=== PATIENT | female | born 1995 | race Caucasian/White ===

== ENCOUNTER 2024-05-27 03:40 | Inpatient (IN) | payer MEDICARE, SELFPAY ==
[2024-05-26 22:30] VITALS: BP 138/88
[2024-05-27] VITALS (9 sets, daily range): BP systolic 106–124; BP diastolic 51–86; BMI 34.5; BMI 33.7
--- NOTE | 2024-05-27 01:12 | ED.GENMED ---
History of Present Illness
<Faviola Frazier PA-C - Last Filed: 05/27/24 03:32>
General
Chief Complaint: Skin Problem
Source: patient
Time Seen by Provider: 05/27/24 01:00
History of Present Illness
History of Present Illness:
29yoF with a history of prior MRSA infection presenting with her mother for evaluation of a left buttock wound. The wound initially started over a week ago. The wound opened and started draining 6 days ago. She was seen by her PCP 2 days ago and was
placed on Bactrim. She has had 6 doses thus far. She is here with persistent drainage. She has not noticed any improvement since starting the antibiotics. She had fevers up to 101.4 earlier last week but denies any fevers the past few days.
Past History
<Faviola Frazier PA-C - Last Filed: 05/27/24 03:32>
Past History
ED Past Medical History: Psychiatric (depression)
Social History
Tobacco: Non-smoker
Alcohol: None
Drug: None
Personal:
Living: with family
Employment: Employed
Phy Exam
<Faviola Frazier PA-C - Last Filed: 05/27/24 03:32>
General Physical Exam
General Presentation: well appearing and no apparent distress
General age: appears stated age
General Skin: warm and dry
General Habitus: normal
Gastrointestinal Exam
Rectal Exam: other (+Large area of erythema at L buttock with two separate wounds noted. The inferior wound is larger with an area of fluctuance, tenderness, and drainage. No crepitus. )
Davidson Coma Scale
Eye Opening: Spontaneous
Verbal Response: Oriented
Motor Response: Obeys Commands
GCS Total Score: 15
Skin Exam
Skin Exam: warm/dry and erythema
Psychiatric Exam
Psychiatric Exam: normal mood/affect
Course
<Faviola Frazier PA-C - Last Filed: 05/27/24 03:32>
Orders/Labs/Results
Orders:
Orders
05/27/24 01:19
CT Pelvis With Iv Contrast Urgent
Comment:
Reason For Exam: Buttock abscess
Test Result ONCE
05/27/24 01:24
Basic Metabolic Panel Urgent
Complete Blood Count/With Diff Urgent
HCG, Serum Qualitative Screen Urgent
05/27/24 01:38
Ketorolac [Toradol] 15 mg IV NOW STA
05/27/24 02:57
CefTRIAXone [Rocephin] 2,000 mg IV NOW STA
05/27/24 03:00
Sterile Water [Sterile Water For Injection] 20 ml .ROUTE .STK-MED
05/27/24 03:15
Vancomycin [Vancocin] 2,000 mg 0.9% Sodium Chloride 500 ml [Nss] 500 ml IV ONCE
Abnormal Lab Results
05/27/24
01:24
WBC 11.0 H 10^3/uL
(4.8-10.8)
RBC 4.17 L 10^6/uL
(4.20-5.40)
Hgb 8.1 L g/dL
(12.0-16.0)
Hct 25.6 L %
(37.0-47.0)
MCV 61.4 L fL
(81.0-99.0)
MCH 19.4 L pg
(27.0-31.0)
MCHC 31.6 L g/dL
(33.0-37.0)
RDW 19.7 H %
(11.5-14.5)
Plt Count 585 H 10^3/uL
(130-400)
Abs Immat Gran (auto) 0.4 H 10^3/uL
(0-0.05)
Absolute Neuts (auto) 6.8 H 10^3/uL
(1.4-6.5)
Absolute Monos (auto) 0.8 H 10^3/uL
(0.1-0.6)
Immature Gran % 3.7 H %
(0-0.5)
Carbon Dioxide 21 L mmol/L
(22-30)
05/27/24 01:24
05/27/24 01:24
Vital Signs
Initial and Last Documented VS:
Initial Vital Signs
Temp Pulse Resp BP Pulse Ox
98.1 F 128 24 138/88 97
05/26/24 22:30 05/26/24 22:30 05/26/24 22:30 05/26/24 22:30 05/26/24 22:30
Last Documented Vital Signs
Temp Pulse Resp BP Pulse Ox
98.1 F 91 16 116/76 96
05/26/24 22:30 05/27/24 03:06 05/27/24 03:06 05/27/24 03:06 05/27/24 03:06
<Rafael Meehan MD - Last Filed: 05/27/24 01:39>
Orders/Labs/Results
Orders:
Orders
05/27/24 01:19
CT Pelvis With Iv Contrast Urgent
Comment:
Reason For Exam: Buttock abscess
Test Result ONCE
05/27/24 01:24
Basic Metabolic Panel Urgent
Complete Blood Count/With Diff Urgent
HCG, Serum Qualitative Screen Urgent
05/27/24 01:38
Ketorolac [Toradol] 15 mg IV NOW STA
05/27/24 02:57
CefTRIAXone [Rocephin] 2,000 mg IV NOW STA
05/27/24 03:00
Sterile Water [Sterile Water For Injection] 20 ml .ROUTE .STK-MED
05/27/24 03:15
Vancomycin [Vancocin] 2,000 mg 0.9% Sodium Chloride 500 ml [Nss] 500 ml IV ONCE
Abnormal Lab Results
05/27/24
01:24
WBC 11.0 H 10^3/uL
(4.8-10.8)
RBC 4.17 L 10^6/uL
(4.20-5.40)
Hgb 8.1 L g/dL
(12.0-16.0)
Hct 25.6 L %
(37.0-47.0)
MCV 61.4 L fL
(81.0-99.0)
MCH 19.4 L pg
(27.0-31.0)
MCHC 31.6 L g/dL
(33.0-37.0)
RDW 19.7 H %
(11.5-14.5)
Plt Count 585 H 10^3/uL
(130-400)
Abs Immat Gran (auto) 0.4 H 10^3/uL
(0-0.05)
Absolute Neuts (auto) 6.8 H 10^3/uL
(1.4-6.5)
Absolute Monos (auto) 0.8 H 10^3/uL
(0.1-0.6)
Immature Gran % 3.7 H %
(0-0.5)
Carbon Dioxide 21 L mmol/L
(22-30)
05/27/24 01:24
05/27/24 01:24
Vital Signs
Initial and Last Documented VS:
Initial Vital Signs
Temp Pulse Resp BP Pulse Ox
98.1 F 128 24 138/88 97
05/26/24 22:30 05/26/24 22:30 05/26/24 22:30 05/26/24 22:30 05/26/24 22:30
Last Documented Vital Signs
Temp Pulse Resp BP Pulse Ox
98.1 F 91 16 116/76 96
05/26/24 22:30 05/27/24 03:06 05/27/24 03:06 05/27/24 03:06 05/27/24 03:06
<Faviola Frazier PA-C - Last Filed: 05/27/24 03:32>
MDM/Problems Addressed
Differential Diagnosis Includes:
29yoF here with L buttock wound for >1 week. Currently on Bactrim for 2 days without improvement. She reports fevers at home up to 101 but she is afebrile here. HR 128, BP stable. She is well-appearing in no acute distress. Patient has a large
amount of erythema along her left buttock with 2 separate wounds. Active drainage present with tenderness. No crepitus. Differential diagnosis includes but is not limited to: Cellulitis, abscess, doubt NSTI
Initial ED plan: Check CBC, BMP, hCG, and CT pelvis. IV Toradol for pain.
<Faviola Frazier PA-C - Last Filed: 05/27/24 03:32>
*Critical Care Note
Total Time (30-74mins, 75-104mins- exclusive of procedures): Not Applicable
<Faviola Frazier PA-C - Last Filed: 05/27/24 03:32>
Update Note
Update Note:
Labs reveal a mild leukocytosis with a white count of 11. CT shows a fluid collection along the left gluteal cleft measuring approximately 7 cm x 1.6 cm x 3 cm representing phlegmon or early abscess with surrounding cellulitis. Reactive
lymphadenopathy noted. IV Rocephin and vancomycin ordered given history of MRSA. Due to failure of outpatient antibiotics, she was admitted for further management.
ED Attending Note
<Faviola Frazier PA-C - Last Filed: 05/27/24 03:32>
-
Portions of this chart may have been created with voice recognition software.� Occasional wrong word or��sound alike� substitutions may have occurred due to the inherent limitations of voice recognition software.
<Rafael Meehan MD - Last Filed: 05/27/24 01:39>
ED Attending Note
Patient seen and examined by attending physician: Yes
ED Attending Note:
Patient presents to ED secondary to 1 week history of worsening pain in her left buttock area. Denies trauma. Denies nausea or vomiting. Denies fever or chills. Denies change in bowel habits. Denies previous history of similar symptoms.
Patient was seen by her primary care physician 2 days ago and started on Bactrim, without improvement in symptoms.
Physical Exam
General: mild painful distress, not acutely ill. afebrile
Head: nc/at. eomi
Neck: supple. no meningeal signs.
Abdomen: normal bowel sounds. not tender. Rectal exam (EULALIO Ramírez, at bedside): an area of erythema with minimal induration, approx 3cm in diameter noted over left buttock without active drainage. An additional 1mm diameter
lesion noted along left upper buttock.
Neuro: alert and oriented. no focal neurological deficits
Skin: no rash
Psychiatric: well kept. interactive and cooperative
Extremities: no edema. no calf tenderness.
History and exam consistent with likely buttock cellulitis, with development of early abscess.
CT pelvis pending
Discharge Plan
Departure
Patient Disposition: Admit
Date of Disposition: 05/27/24
Time of Disposition: 03:03
Presentation/result/management discussed w/ accepting MD/DO: Hospitalist
Discharge Problem:
Abscess and cellulitis of gluteal region
Prescriptions:
No Action
quetiapine 25 MG tablet
25 mg PO BID
Patient Comments:
morning and afternoon
benztropine 0.5 MG tablet
0.5 mg PO BID
haloperidol 5 MG tablet
10 mg PO DAILY
prazosin 1 MG capsule
2 mg PO HS
sertraline 100 MG tablet
100 mg PO DAILY
quetiapine 100 MG tablet
400 mg PO HS
omeprazole [Prilosec] 10 MG capsule,delayed release(DR/EC)
20 mg PO DAILY
trazodone 100 MG tablet
100 mg PO HS
buspirone 10 MG tablet
20 mg PO TID
hydroxyzine HCl 10 MG tablet
10 mg PO TID
bupropion HCl 150 MG tablet extended release 24 hr
150 mg PO DAILY
albuterol sulfate [Proventil HFA] 90 MCG/PUFF HFA aerosol inhaler
1 puff inhalation Q4HPRN PRN (Reason: shortness of breath) Qty: 1 0RF
dicyclomine [Bentyl] 10 mg Capsule
10 mg PO QID
Referrals:
Jaquelin Franks CRNP [Family Provider] -
Interventions
Interventions:
*Risk Screen - Suicide Last Done: 05/26/24 22:30
*General Assessment Last Done: 05/27/24 02:05
*Neglect/Abuse Screening Last Done: 05/26/24 22:30
ED- Fall Risk Assessment Last Done: 05/27/24 02:05
*ED COVID-19 Vaccine History Last Done: 05/27/24 02:05
ED-Skin Assessment Last Done: 05/27/24 02:05
Discharge Date and Time
Print Language: BULGARIAN
[2024-05-27 01:30] LABS: % Basophils 0.6 % (0-2); % Eosinophils 1.3 % (0-6); % Immature Granulocytes 3.7 % (0-0.5); % Monocytes 7.4 % (1.7-9.3); Absolute Basophils 0.1 10^3/uL (0-0.2); Absolute Eosinophils 0.1 10^3/uL (0-0.7); Absolute Immature Granulocytes 0.4 10^3/uL (0-0.05); Absolute Lymphocytes 2.8 10^3/uL (1.2-3.4); Absolute Monocytes 0.8 10^3/uL (0.1-0.6); Absolute Neutrophils 6.8 10^3/uL (1.4-6.5); Hematocrit 25.6 % (37.0-47.0); Hemoglobin 8.1 g/dL (12.0-16.0); Mean Corp Hgb Conc. 31.6 g/dL (33.0-37.0); Mean Corpuscular Hgb 19.4 pg (27.0-31.0); Mean Corpuscular Volume 61.4 fL (81.0-99.0); Mean Platelet Volume 8.6 fL (7.4-10.4); Nucleated Red Blood Cells % 0.4 %; Platelet Count 585 10^3/uL (130-400); Red Blood Cell Count 4.17 10^6/uL (4.20-5.40); Red Cell Dist. Width 19.7 % (11.5-14.5)
[2024-05-27 01:42] LABS: HCG, Serum Qualitative Screen Negative
[2024-05-27 01:45] LABS: Blood Urea Nitrogen 9 mg/dl (7-17); Calcium 8.9 mg/dl (8.4-10.2); Carbon Dioxide 21 mmol/L (22-30); Chloride 105 mmol/L (98-107); Glucose 95 mg/dl (70-99); Potassium 4.4 mmol/L (3.5-5.1); Sodium 139 mmol/L (135-145); eGFR > 60.00
[2024-05-27] MEDS: TORADOL 15 MG IV ×2 (01:48→16:08)
[2024-05-27] MEDS: ROCEPHIN 2000 MG IV (03:02)
--- NOTE | 2024-05-27 03:24 | HPS.HSE ---
Family Physician
-
Family Physician: Jaquelin Franks
Chief Complaint
-
Lt buttock wound with fever at home
History of Present Illness
29F Obesity, prior HX MRSA , schizoaffective disorder, and asthma seen at ER for evaultion of Lt buttock wound and cellultis.
- currently on PO Bactrim for 2 -3 days by PCP
- Reported Fever T max 101 at home but afebrile at ER
- Wound opened up and drained 6 days ago
Medical History
Past Medical History
Past Medical History: Reports Asthma, Psychiatric (schizoaffective disorder) and Other (obesity , HX MRSA )
Past Surgical History: Reports Other
Social History
Tobacco: Non-smoker
Alcohol: None
Living: With Family
Family History
Family History: Not pertinent
Allergies / Home Medications
Allergies reflects when Allergies were last updated in [employer].
Home Medications with original date entered in [employer]
Allergy/Medication List:
Allergies
Allergy/AdvReac Type Severity Reaction Status Date / Time
risperidone Allergy Unknown Verified 05/26/24 22:32
Home Medications
albuterol sulfate 90 mcg/actuation aerosol inhaler (Proventil HFA) 1 puff inhalation Q4HPRN PRN shortness of breath ##1 05/14/21
benztropine 0.5 mg tablet 0.5 mg PO BID 05/14/21
bupropion HCl 150 mg 24 hr tablet, extended release 150 mg PO DAILY 05/14/21
buspirone 10 mg tablet 20 mg PO TID 05/14/21
haloperidol 5 mg tablet 10 mg PO DAILY 05/14/21
hydroxyzine HCl 10 mg tablet 10 mg PO TID 05/14/21
omeprazole 10 mg capsule,delayed release (Prilosec) 20 mg PO DAILY 05/14/21
prazosin 1 mg capsule 2 mg PO HS 05/14/21
quetiapine 100 mg tablet 400 mg PO HS 05/14/21
quetiapine 25 mg tablet 25 mg PO BID 05/14/21
sertraline 100 mg tablet 100 mg PO DAILY 05/14/21
trazodone 100 mg tablet 100 mg PO HS 05/14/21
dicyclomine 10 mg capsule 10 mg PO QID 05/27/24
Review of Systems
-
Constitutional: Reports No Symptoms
EENT: Reports No Symptoms
Respiratory: Reports No Symptoms
Cardiac: Reports No Symptoms
Abdomen/GI: Reports No Symptoms
: Reports No Symptoms
Musculoskeletal: Reports No Symptoms
Skin: Reports See HPI
Neurological: Reports No Symptoms
Endocrine: Reports No Symptoms
Hematologic/Lymphatic: Reports No Symptoms
Psych: Reports No Symptoms
Physical Exam
Vital Signs
Vital Signs
Temp Pulse Resp BP Pulse Ox
98.1 F 91 16 116/76 96
05/26/24 22:30 05/27/24 03:06 05/27/24 03:06 05/27/24 03:06 05/27/24 03:06
Physical Exam
General: Obese
HEENT: NormoCephalic, Moist mucous membranes and Atraumatic
Respiratory: Clear
Cardiac: S1/S2 and Regular Rhythm; No Murmur or Rub
GI: Soft, Non Tender, Non Distended and Normal Bowel Sounds; No Organomegaly
Rectal: Deferred by Provider
Musculoskeletal: No Clubbing, No Cyanosis and No Edema
Skin: No Rash
Neuro: AO x 3 and Nonfocal/grossly intact
Psych: Calm
Laboratory Results
-
05/27/24 01:24
05/27/24 01:24
Data Reviewed
-
CT Scan: Report Reviewed by me
Lab Data: Labs Reviewed by me
Impression/Plan
-
Reviewed VS: Afebrile , stable VS
Data
WCC 11
Hgb 8.1 - baseline 9.4
Plt 585
CO2 [address]
fluid collection in medial Lt gluteal cleft 7x 1.6 x 3 cm
No rim enhancement
No free air
Mildly enlaged lt inguinal node
No prior hospitalist admission:
ASSESSMENT & PLAN
Pending Rx reconciliation
Lt buttock wound on OP Bactrim
Currently complicated with fever and CT evidence of fluid collection
Spontaneous Wd drainage 6 days ago
- HX MRSA
- switch ABx to IV Zosyn and vanco
- NPO and IVF in case OR drainage on Monday
- GS consult
HX obesity
Schizoaffective disorder
Asthma
- cont all OP Meds
DVT Px: SCD
Code: Full code
IP MS
[2024-05-27] MEDS: VANCOCIN 540 MG IV (03:46)
--- NOTE | 2024-05-27 04:19 | EDRN ---
Emergency contact ( mom):[phone]
[2024-05-27] MEDS: NSS 1000 IV (05:20)
[2024-05-27] MEDS: ZOSYN 50 IV ×3 (08:08→19:55)
[2024-05-27] MEDS: BENTYL 10 MG PO ×3 (08:10→21:35)
[2024-05-27] MEDS: SEROQUEL 25 MG PO ×2 (08:10→19:55)
[2024-05-27] MEDS: HALDOL 10 MG PO (08:10)
[2024-05-27] MEDS: ZOLOFT 100 MG PO (08:10)
[2024-05-27] MEDS: COGENTIN 0.5 MG PO ×2 (08:10→19:55)
[2024-05-27] MEDS: PROTONIX 40 MG PO (08:10)
[2024-05-27] MEDS: WELLBUTRIN XL (24 hour extended release) 150 MG PO (08:10)
[2024-05-27] MEDS: ATARAX 10 MG PO ×3 (08:10→21:35)
[2024-05-27] MEDS: BUSPAR 20 MG PO ×3 (08:10→21:35)
[2024-05-27] MEDS: TYLENOL 650 MG PO ×3 (08:11→15:31)
--- NOTE | 2024-05-27 08:38 | PHA.VAN.IN ---
Assessment
- Assessment
Renal Function: Appears similar to baseline
Maximum Temperature: 98.6
Minimum Temperature: 97.5
Concomitant Antimicrobials: Piperacillin/Tazobactam
AUC Dosing Plan
- Dosing Variables
Dosing Weight (kg): 103.5
Dosing CrCl (ml/min): 107
Vd coefficient (L/kg): 0.6
- Empiric Dosing
Initial / Loading Dose: 2000mg on 05/27 @0346
Maintenance Regimen: 1250mg Q12H to start on 05/27 @1800
Estimated AUC (mcg*h/mL): 462
Estimated Peak (mcg*h/mL): 29.9
Estimated Trough (mcg/ml): 11.2
Estimated Half Life (H): 7.4
- Monitoring
No levels ordered at this time: Consider levels in next few days
Pharmacokinetics Vancomycin I
- -
Patient Age: 29
Patient Sex: Female
Vancomycin Day #: 1
Indication: Skin And Soft Tissue
Requesting Provider: Maryam Dos Santos
Pertinent Antimicrobial Allergies:
NKDA
Height / Weight:
Height 5 ft 9 in
Actual Weight 103.464 kg
- Vital Signs / Lab Results
Temp Pulse Resp BP Pulse Ox
97.5 F 84 16 108/71 94
05/27/24 07:30 05/27/24 07:30 05/27/24 07:30 05/27/24 07:30 05/27/24 07:30
Lab Results - Hematology
05/27/24
01:24
WBC 11.0 H
Lab Results - Chemistry
05/27/24
01:24
BUN 9
Creatinine 1.0
--- NOTE | 2024-05-27 10:06 | CON.CRS ---
Consultation
-
Date/Time Consultation Requested: 05/27/2024, 04:44
Date/Time Consultation Performed: 05/27/2024, 09:00
Requesting Provider: Duke Trujillo MD
Performing Provider: Bello Gong MD
Reason for Consultation: anal abscess
Medical History
-
Chief Complaint: anal pain
History of Present Illness:
27-year-old female with a prior history of MRSA infection presents to the emergency department early this morning complaining of a left buttocks abscess. She states the pain and happened about 8 or 9 days ago and this pain has never happened
before. She had a fever about 5 or 6 days ago and her Tmax was 101.4. She states that the wound started draining about 7 days ago. First it was pus and then it was mixed with blood. Originally her pain started more as a discomfort but has
increased in severity since onset. 3 days ago she saw her primary care physician and was prescribed Bactrim as an outpatient. She came to the ER once her wound was not improving. The patient states she had a history of a similar abscess on her
'side'. This was lanced by her primary care physician. She is currently not on any blood thinning medication. She has no prior history of abdominal surgery.
In the ER her WBC is 11.0. She has remained afebrile. CT of the abdomen and pelvis shows fat stranding and inflammatory change in the left ischial rectal fossa measuring 7 cm x 1.6 cm medial-lateral by 3 cm superior-inferior. No well-defined wall
is appreciated findings likely represent cellulitis and adjacent phlegmon. No definite drainable abscess formation. Soft tissue tract extends the left posterior lateral rectum and a fistula to the rectum may be present. Mild left inguinal lymph
node enlargement likely reactive. We have been consulted for further surgical evaluation.
Past Medical History
Past Medical History: Asthma, Psychiatric (obesity , history of MRSA ) and Other
Past Surgical History: None
Social History
Tobacco: Non-Smoker
Alcohol: None
Drug: None
Family History
Family History: Reviewed & Not Pertinent
Allergies / Home Medications
Allergy/AdvReac Type Severity Reaction Status Date / Time
risperidone Allergy Unknown Verified 05/26/24 22:32
�Medication �Instructions �Recorded �Confirmed �Type
albuterol sulfate 90 mcg/actuation 1 puff inhalation Q4HPRN PRN 05/14/21 05/27/24 Rx
aerosol inhaler (Proventil HFA) shortness of breath ##1
benztropine 0.5 mg tablet 0.5 mg PO BID 05/14/21 05/27/24 History
bupropion HCl 150 mg 24 hr tablet, 150 mg PO DAILY 05/14/21 05/27/24 History
extended release
buspirone 10 mg tablet 20 mg PO TID 05/14/21 05/27/24 History
haloperidol 5 mg tablet 10 mg PO DAILY 05/14/21 05/27/24 History
hydroxyzine HCl 10 mg tablet 10 mg PO TID 05/14/21 05/27/24 History
omeprazole 10 mg capsule,delayed 20 mg PO DAILY 05/14/21 05/27/24 History
release (Prilosec)
prazosin 1 mg capsule 2 mg PO HS 05/14/21 05/27/24 History
quetiapine 100 mg tablet 400 mg PO HS 05/14/21 05/27/24 History
quetiapine 25 mg tablet 25 mg PO BID 05/14/21 05/27/24 History
sertraline 100 mg tablet 100 mg PO DAILY 05/14/21 05/27/24 History
trazodone 100 mg tablet 100 mg PO HS 05/14/21 05/27/24 History
dicyclomine 10 mg capsule 10 mg PO QID 05/27/24 05/27/24 History
Review of Systems
-
History Source: Patient
All other systems: Negative unless noted
: Other (left buttock pain)
A 10 point review of systems was completed, and was negative except as per HPI.
Physical Exam
Vital Signs
Temp 97.5 F 05/27/24 07:30
Pulse 84 05/27/24 07:30
Resp Rate 16 05/27/24 07:30
Blood pressure 108/71 05/27/24 07:30
SaO2 94 05/27/24 09:53
05/26/24 05/27/24 05/28/24
06:59 06:59 06:59
Actual Weight 103.464 kg
Body Mass Index (BMI) 33.7
Lab Results / Allergies
WBC 11.0 10^3/uL (4.8-10.8) H 05/27/24 01:24
Hgb 8.1 g/dL (12.0-16.0) L 05/27/24 01:24
Hct 25.6 % (37.0-47.0) L 05/27/24 01:24
Plt Count 585 10^3/uL (130-400) H 05/27/24 01:24
Abs Immat Gran (auto) 0.4 10^3/uL (0-0.05) H 05/27/24 01:24
Neutrophils % 62.0 % (42.2-75.2) 05/27/24 01:24
Allergy/AdvReac Type Severity Reaction Status Date / Time
risperidone Allergy Unknown Verified 05/26/24 22:32
Physical Exam
General: Well Developed and Well Nourished
GI: Soft and Non Tender
Rectal: Other (2 noted areas of erythema, induration, and fluctuance consistent with anal abscesses (both with slight drainage))
Neuro: AO x 3
Data Reviewed
-
CT Scan: Image Personally Visualized and interpreted, Report Reviewed by me and Discussed with Physician
Labs: Labs Reviewed by me, Discussed with Physician and Discussed with Patient
Assessment / Plan
-
Assessment: 29-year-old female with a history of MRSA presents to [place] ER complaining of left-sided buttocks pain for the past 8 or 9 days found to have an left anal abscess on exam
Plan:
Plan for OR today for incision and drainage of perianal abscess she has been added onto the schedule for later this afternoon. Continue n.p.o. status. Continue Zosyn IV and Vanco mycin IV. Hold DVT prophylaxis prior to OR. Continue IV fluids.
Discussed with patient who is in agreement.
[2024-05-27] MEDS: SENOKOT-S 1 TABLET PO (10:33)
--- NOTE | 2024-05-27 10:34 | PTCARENOTE ---
per patient no BM in 4days. prn docusate w/senna given at 1033. see MAR for proper charting
[2024-05-27 11:37] LABS: Hematocrit 23.9 % (37.0-47.0); Hemoglobin 7.5 g/dL (12.0-16.0); Mean Corp Hgb Conc. 31.4 g/dL (33.0-37.0); Mean Corpuscular Hgb 19.6 pg (27.0-31.0); Mean Corpuscular Volume 62.4 fL (81.0-99.0); Mean Platelet Volume 8.8 fL (7.4-10.4); Platelet Count 510 10^3/uL (130-400); Red Blood Cell Count 3.83 10^6/uL (4.20-5.40); Red Cell Dist. Width 19.7 % (11.5-14.5); White Blood Cell Count 9.9 10^3/uL (4.8-10.8)
[2024-05-27 11:58] LABS: Blood Urea Nitrogen 9 mg/dl (7-17); Calcium 8.8 mg/dl (8.4-10.2); Carbon Dioxide 22 mmol/L (22-30); Chloride 106 mmol/L (98-107); Estimated Creatinine Clearance 107 ml/min; Glucose 100 mg/dl (70-99); Potassium 4.6 mmol/L (3.5-5.1); Sodium 138 mmol/L (135-145); eGFR > 60.00
--- NOTE | 2024-05-27 12:01 | CM ---
Patient seen at bedside with physician. Patient for OR today. Patient lives with significant other in a 3 story home with no DME at home. Patient PCP is Dr. Franks and she indicated that she has been using [facility] on [address] [place].
Patient has not had any VN or SNF needs previously. Patient plan is for home with VN pending medical treatment plan. CM will continue to follow for discharge planning needs.
Plan; home with VN vs home with no needs; watch for IV antibiotics needs at home
--- NOTE | 2024-05-27 12:16 | W.PN.HOSP.TC ---
Today's Communication/Plan
-
OR today
possible need for transfusion
Assessment / Plan
Assessment / Plan
pt is a 29 year old female
Lt buttock wound/abscess--failed on outpatient Bactrim --Currently complicated with fever and CT evidence of fluid collection--Spontaneous drainage 6 days [employer]-- HX MRSA- switch ABx to IV Zosyn and vanco - NPO and IVF in case OR drainage on
Monday--apprec CRS input--for OR today--pain control
anemia of chronic disease -- baseline HGB ~8--currently 7.5--check iron and usual studies
HX obesity/Schizoaffective disorder/Asthma-- cont all OP Meds
DVT prophylaxis
code status--FULL CODE
Anticipated Discharge: > 48 hours
Subjective/Interval History
-
Date of Service: May 27, 2024
pt c/o pain
Objective Data
-
Labs:
Laboratory Results
05/27/24 05/27/24
01:24 11:13
WBC 11.0 H 9.9
Hgb 8.1 L 7.5 L
Hct 25.6 L 23.9 L
Plt Count 585 H 510 H
Sodium 139 138
Potassium 4.4 4.6
Chloride 105 106
Carbon Dioxide 21 L 22
BUN 9 9
Creatinine 1.0 1.0
Glucose 95 100 H
Calcium 8.9 8.8
Vital Signs:
max temp 24 hours
05/27/24
04:48
Temp 98.6 F
Vital Signs
Temp Pulse Resp BP Pulse Ox
97.5 F 84 16 108/71 94
05/27/24 07:30 05/27/24 07:30 05/27/24 07:30 05/27/24 07:30 05/27/24 09:53
Review of Systems
-
All other systems: Reviewed and negative
Physical Exam
-
General: Well Developed, Well Nourished, No Apparent Distress and Obese
HEENT: Normocephalic and Atraumatic
Respiratory: Clear to Auscultation; Negative Wheezes or Rhonchi
Cardiac: Regular Rhythm and S1/S2; Negative Murmur
GI: Soft, Nontender, Nondistended and Normal Bowel Sounds
Musculoskeletal: No Clubbing, No Cyanosis and No Edema
Skin: Other (left medial buttock swelling, reg, firm, tender to touch)
[2024-05-27 13:19] LABS: Iron 23 ug/dl (37-170)
[2024-05-27] MEDS: BENTYL PO (13:25)
[2024-05-27 15:03] LABS: TSH 5.86 uIU/ml (0.47-4.68)
[2024-05-27 15:07] LABS: Ferritin 17.7 ng/ml (6.24-137)
[2024-05-27 15:39] LABS: Folate 7.5 ng/ml (2.76-20); Vitamin B12 796 pg/ml (239-931)
--- NOTE | 2024-05-27 16:47 | PTCARENOTE ---
pt to OR at 1618. See worklist for proper documentation on pre-op checklist.
--- NOTE | 2024-05-27 18:07 | W.IMMPOSTOP ---
Surgical Immed Post Op Note
-
Primary Surgeon: Bello Gong MD
Assisting Surgeon: None
Pre-op Diagnosis: Left gluteal abscess
Post-op Diagnosis: Left gluteal abscess x 2, subcutaneous fistula tract
Procedure Performed: Exam under anesthesia incision and drainage of 2 left gluteal abscesses, placement of Rufino drain
Anesthesia Type: Sedation
Specimen / Cultures: Anaerobic and aerobic cultures from left gluteal abscess; pathology sent for left inferior gluteal abscess and left superior gluteal abscess
Estimated Blood Loss: 15 mL
Complications: None
Operative Findings: Performed local block with 40 mL of 0.25% Marcaine with epi mixed with dexamethasone; aspirated left gluteal abscess in the left inferior buttock, about 8 cm from the anal verge, and sent aerobic and anaerobic cultures; created
cruciate incision overlying this abscess and excised the corners, which I sent for pathology as left inferior gluteal abscess; abscess drained about 15 mL of pus; loculations were broken up with finger fracture; aspirated left gluteal abscess in the
left lateral region, about 4 cm from the anal verge; created cruciate incision overlying this and excised the corners, which I sent for pathology as left superior gluteal abscess; broke up loculations with finger fracture and identified a
subcutaneous tract connecting each abscess; irrigated copiously; performed anoscopy with small and medium [place] and no anal canal pathology was noted; connected the 2 abscesses with a 0.25 inch Rufino secured to itself with three 2-0 silk
ties; injected 20 mL of local
--- NOTE | 2024-05-27 18:13 | OR.RPT ---
Operative Report
Operative Report
DATE OF OPERATION: 05/27/2024
SURGEON: Bello Gong MD
PREOPERATIVE DIAGNOSIS: Left gluteal abscess
POSTOPERATIVE DIAGNOSIS: Left gluteal abscess x 2 with subcutaneous fistula tract
OPERATION: incision and drainage of left gluteal abscess x 2, diagnostic anoscopy, placement of Ozona drain
ASSISTANTS:
1. None
ANESTHESIA: Local with sedation
ESTIMATED BLOOD LOSS: 15 mL
FINDINGS:
1. Left inferior gluteal abscess in the left lower region of the left buttock, about 8 cm from the anal verge; aspirated abscess and sent for anaerobic and aerobic cultures; performed incision and drainage
2. Left superior gluteal abscess in the left lateral region of the left buttock, about 4 cm from the anal verge; aspirated to confirm pus and performed incision and drainage
3. Performed anoscopy, no obvious internal opening noted; no other anal canal pathology noted; redundant rectal mucosa
4. Using finger fracture, identified a subcutaneous fistula tract connecting the 2 left gluteal abscesses
SPECIMENS:
1. Left gluteal abscess anaerobic and aerobic cultures
2. Left inferior gluteal abscess
3. Left superior gluteal abscess
DRAINS: Rufino
COMPLICATIONS: None
INDICATIONS: The patient is a 29-year-old female who presented with 7 to 10 days of left gluteal pain that spontaneously drained and was associated with fevers. The patient was seen by her PCP 3 days prior to admission, who started Bactrim.
However, the pain and drainage persisted, so the patient presented to the ED. Her WBC was 11.[address] scan showed a left buttock abscess versus phlegmon, about 3 x 7 cm in size. On exam, there appeared to be 2 fluctuant areas connected by
erythema and induration, concerning for possible subcutaneous fistula tract. The differential includes a skin abscess, hidradenitis and cryptoglandular abscess. Therefore, the patient was recommended to have surgery. The operation was discussed
with the patient in detail, including the risks, benefits and alternatives. The plan for surgery was to examine the area, drain the abscess, and identify any fistulous connections, whether subcutaneous or perianal. If a fistula tract was
identified, possible maneuvers include a seton or Rufino drain placement versus a fistulotomy. Risks described included, but not limited to, bleeding, infection, damage to nearby structures such as the anal sphincter, fecal incontinence,
recurrence, and anesthetic risks. The patient understood and agreed to proceed.
PROCEDURE IN DETAIL: The patient was brought to the operating room and placed in right lateral decubitus position on their bed. The left buttock was retracted with tape. The left buttock was then shaved, prepped with betadine and draped.
Anesthesia commenced sedation without issues. A time-out was performed verifying the correct patient, procedure, operative site, positioning, and special equipment.
Local anesthesia used was a mixture of 60 mL of 0.25% Marcaine with epi and 0.6 mg of dexamethasone. The left gluteal abscess was circumferentially injected with about 40 mL local, as well as perianally. Then, an 18G needle was advanced into the
apex of the left inferior gluteal abscess and 3 mL of pus was aspirated. This was sent for aerobic and anaerobic culture. A cruciate incision was then performed using Bovie electrocautery. The corners of the incision were excised and sent for
pathology. The wound measured 2 cm in diameter. The abscess was probed with finger fracture and suctioned. A total of about 15 mL of pus was removed. The same procedure was performed for the left superior gluteal abscess, but cultures were not
sent. The wound measured 1.5 cm in diameter. An additional 5 mL of pus was removed. After probing the wound with finger fracture, a subcutaneous tract was identified connecting each abscess cavity. There was no fistula identified leading towards
the anus.
I performed a diagnostic anoscopy using the [place] retractors in increasing size. No obvious fistula tract or internal opening was identified. No other anal canal pathology was identified. The exam was slightly difficult due to the left
lateral positioning of the patient. The abscesses were copiously irrigated with sterile saline. Hemostasis was confirmed. I placed a 0.25 inch Ozona drain connecting the 2 abscesses subcutaneously and secured to itself using three 2-0 silk
ties. I injected the remaining 20 mL of local circumferentially around the abscesses. The corner of a 4x4 gauze was then tucked into the abscess cavity.
At this point, the procedure was complete. All needle, sponge and instrument counts were correct. The patient tolerated the procedure well. The area was dressed with gauze and tape.
DICTATED BY: Bello Gong MD
[2024-05-27] MEDS: VANCOCIN IV (18:35)
--- NOTE | 2024-05-27 19:22 | SUR.PHASEI ---
patient denies pain in pacu - but urge to void, assisted onto bedpan , gown changed for old serosang drainage, unable to void on bedpan - vss - discharge from pacu at 1840 - walked to bathroom in room - tolerated well. voided a large amount of
urine, soaking dressing which fell off, ashley visible as well as wicked rolled gauze with pinked tinged drainage. 4x4's and abd - new dressing placed. patient walked well with minimal assistance, vanco finishing on pump. assisted back to bed.
family at bedside. patient has call alarcon and dinner tray.
[2024-05-27] MEDS: MINIPRESS 2 MG PO (21:33)
[2024-05-27] MEDS: SEROQUEL 400 MG PO (21:34)
[2024-05-27] MEDS: DESYREL 100 MG PO (21:35)
[2024-05-27] MEDS: TYLENOL 1000 MG PO (23:06)
--- NOTE | 2024-05-27 23:50 | PTCARENOTE ---
Pt received start of shift from PACU. Pt denies any pain. Gluteal dressing after change has serous drainage present, ashley drain in place. Pt denies any pain. Pt and family questioning how much longer pt will need to be on abx - updated pt and
family on current plan of care. Pt ambulating in room independently. Pt w/ good appetite. Informed pt to notify RN if any changes, call alarcon within reach.
[2024-05-28] MEDS: ZOSYN 50 IV ×2 (02:52→07:37)
[2024-05-28] MEDS: VANCOCIN 275 MG IV (05:56)
[2024-05-28] MEDS: TYLENOL PO (06:00)
[2024-05-28 07:40] VITALS: BP 139/75
[2024-05-28] MEDS: WELLBUTRIN XL (24 hour extended release) 150 MG PO (07:42)
[2024-05-28] MEDS: ZOLOFT 100 MG PO (07:42)
[2024-05-28] MEDS: HALDOL 10 MG PO (07:42)
[2024-05-28] MEDS: SEROQUEL 25 MG PO (07:42)
[2024-05-28] MEDS: BENTYL 10 MG PO (07:42)
[2024-05-28] MEDS: BUSPAR 20 MG PO (07:42)
[2024-05-28] MEDS: ATARAX 10 MG PO (07:42)
[2024-05-28] MEDS: COGENTIN 0.5 MG PO (07:43)
[2024-05-28] MEDS: PROTONIX 40 MG PO (07:43)
[2024-05-28 08:39] LABS: Hematocrit 26.3 % (37.0-47.0); Hemoglobin 8.2 g/dL (12.0-16.0); Mean Corp Hgb Conc. 31.2 g/dL (33.0-37.0); Mean Corpuscular Hgb 19.9 pg (27.0-31.0); Mean Corpuscular Volume 63.7 fL (81.0-99.0); Mean Platelet Volume 8.7 fL (7.4-10.4); Platelet Count 573 10^3/uL (130-400); Red Blood Cell Count 4.13 10^6/uL (4.20-5.40); Red Cell Dist. Width 19.9 % (11.5-14.5)
--- NOTE | 2024-05-28 08:47 | W.PN.CRS1 ---
Today's Communication / Plan
-
As below
Assessment/Plan
-
29-year-old female with PMH of asthma, schizoaffective disorder, obesity who presents with 9 to 10 days of left gluteal pain. She has never had this before. About 6 to 7 days ago, she states the area started to drain pus. She had a fever of
101.44 to 5 days ago. She saw her PCP 3 days ago, who started Bactrim. The pain and drainage was persistent, so she went to the ED. Her WBC was 11.[address] showed left buttock abscess about 3 cm x 7 cm.
POD1 I&D of left gluteal abscess x 2 with placement of Rufino
AFVSS
WBC 9.0, Hb 8.2 from 7.5
� Continue regular diet
� Continue pain control with Tylenol; can add Toradol as needed
� Recommend DVT PPx due to BMI
� Continue IV Zosyn and vanc for history of MRSA
� Recommend sitz bath's 3 times daily
� Appreciate hospitalist
Dispo�okay for discharge from surgical standpoint if medically clear; recommend oral antibiotics for 7 days; follow-up with me in 1 to 2 weeks for wound check and possible drain removal
Subjective Data
Subjective Data
Date of Service: May 28, 2024
No overnight events.
Pain controlled.
Denies nausea/vomiting. Tolerating diet.
Objective Data
-
Vital Signs
Temp Pulse Resp BP Pulse Ox
97.7 F 73 16 139/75 94
05/28/24 07:40 05/28/24 07:40 05/28/24 07:40 05/28/24 07:40 05/28/24 07:40
Intake & Output
05/27/24 05/28/24 05/29/24
06:59 06:59 06:59
Intake Total 830 / 830
Balance 830 / 830
Intake:
Oral fluids 480 / 480
IV fluids (Total) 350 / 350
normosol 100 / 100
vancomycin 250 / 250
Other:
Number of approximated MODERATE 1
amounts of urine
Lab Results
05/28/24 08:12
Physical Exam
-
General: No Acute Distress and AOx3
HEENT: Grossly Normal
Abdomen: Soft, Non Distended and Non Tender
Skin: Warm and Dry
Wound: Other (Left buttock wound with Morris in place, erythema present but improving, no purulent drainage)
[2024-05-28 09:24] LABS: ALT (SGPT) 16 U/L (0-35); AST (SGOT) 16 U/L (14-36); Albumin 3.8 g/dl (3.5-5.0); Alkaline Phosphatase 108 U/L (38-126); Blood Urea Nitrogen 10 mg/dl (7-17); Carbon Dioxide 22 mmol/L (22-30); Chloride 105 mmol/L (98-107); Estimated Creatinine Clearance 119 ml/min; Glucose 122 mg/dl (70-99); Magnesium 2.6 mg/dl (1.6-2.3); Potassium 5.3 mmol/L (3.5-5.1); Sodium 136 mmol/L (135-145); Total Bilirubin 0.1 mg/dl (0.2-1.3); Total Protein 7.1 g/dl (6.3-8.2); eGFR > 60.00
--- NOTE | 2024-05-28 09:30 | W.PN.HOSP.TC ---
Today's Communication/Plan
-
d/c home
Assessment / Plan
Assessment / Plan
pt is a 29 year old female
Lt buttock wound/abscess
-failed on outpatient Bactrim -
-Currently complicated with fever and CT evidence of fluid collection
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
-HX MRSA, switch ABx to IV Zosyn and vanco
-Patient underwent incision and drainage of abscess which had some tunneling beneath the skin and required drain placement
-Surgery evaluated patient today and has been cleared for discharge
-Intraoperative culture growing some gram-positive cocci, further identification pending
-With history of MRSA will cover with doxycycline. Cannot be resumed back on Bactrim is also today have some mild hypokalemia. Will avoid clindamycin with high risk of C. difficile
Iron def anemia
-baseline HGB ~8, menstruation related likely
-Ferritin of 17 with serum iron 23
-Start patient on oral iron every other day
-Follow-up with PCP for recheck in 3-6 months
HX obesity/Schizoaffective disorder/Asthma
- cont all OP Meds
DVT prophylaxis
code status--FULL CODE
More than 30 minutes spent in discharge including
Final examination of the patient
Summarizing hospital stay
Instructions for continuing care to all relevant caregivers
Preparation of discharge records, prescriptions, and referral forms
Total time spent (in minutes): 38 mins
Anticipated Discharge: Today
Subjective/Interval History
-
Date of Service: May 28, 2024
Denies of any problems overnight
No significant pain at surgical site on left buttock
Afebrile
No bleeding complication
Objective Data
-
Labs:
Laboratory Results
05/28/24
08:12
WBC 9.0
Hgb 8.2 L
Hct 26.3 L
Plt Count 573 H
Sodium 136
Potassium 5.3 H
Chloride 105
Carbon Dioxide 22
BUN 10
Creatinine 0.9
Glucose 122 H
Calcium 9.0
Total Bilirubin 0.1 L
AST 16
ALT 16
Alkaline Phosphatase 108
Vital Signs:
Vital Signs
Temp Pulse Resp BP Pulse Ox
97.7 F 73 16 139/75 94
05/28/24 07:40 05/28/24 07:40 05/28/24 07:40 05/28/24 07:40 05/28/24 07:40
I&O
05/27/24 05/28/24 05/29/24
06:59 06:59 06:59
Intake Total 830 / 830
Balance 830 / 830
Review of Systems
-
Respiratory: Reports No Symptoms
Cardiac: Reports No Symptoms
Abdomen/GI: Reports No Symptoms
Physical Exam
-
General: Obese
HEENT: Negative Oxygen
Genito-urinary: Other (Left ischial area drain with two cavities and packed with gauge, no bleeding )
Neuro: Awake, Alert and Oriented
Psych: Calm
--- NOTE | 2024-05-28 10:22 | PTCARENOTE ---
pt received IV abx this AM. pt to be discharged to home with no needs. discharge instructions done by this nurse. pt waiting on ride from mother. pt is a self within the room. site repacked and redressed this morning by surgeon. hgb came back at 8.2
this am, no transfusion needed at this time.
--- NOTE | 2024-05-28 10:46 | PTCARENOTE ---
RN funding coordinator- Patient cleared for discharge. Reviewed discharge instructions. Patient dressed and taken to Discharge Lounge to wait for ride
--- NOTE | 2024-05-28 13:13 | CM ---
Reviewed the chart notes. Patient discharged to home today. Patient's spouse provided transportation. CM continues to be available to patient/family and is monitoring medical plan for needs at discharge.
Plan: Discharge to home with no needs identified.
--- NOTE | 2024-05-29 08:06 | W.DCSUMMARY ---
Discharge Summary
Discharge Data
Date of Admission: 05/27/24
Date of Discharge: 05/28/24
-
Pending Results: Yes
Additional Pending Results:
Intraoperative wound culture report
Hospital Course
Discharging Physician : Dr Demetrius Eldridge
Disposition : Home
Primary care physician : Dr Jaquelin Franks
Principal Discharge diagnosis :
Left buttock skin abscess with tunneling
Iron deficiency anemia
Chronic Discharge diagnosis :
Obesity
Schizoaffective disorder
Asthma
History of methicillin-resistant Staphylococcus aureus infection
Hospital Course :
Patient is a 29-year-old female with mentioned past medical history came to ER with new onset of left buttock/ischial area redness and swelling. Patient was diagnosed to have furuncles small abscess and was provided oral Bactrim therapy by primary
care physician. Unfortunately patient symptoms continue to worsen patient noticed some spontaneous drainage and new fever setting in. Patient came to ER for further evaluation. Patient had a CT scan of pelvis confirming abscess in the area.
Patient antibiotics were escalated to vancomycin and Zosyn with history of MRSA. Surgeon were involved in care and patient underwent incision and drainage of abscess which was noticed to having some tunneling beneath the skin required drain
placement. Patient intraoperative wound culture was growing gram-positive cocci and further identification and susceptibilities are pending at discharge. Patient was cleared by surgery to be discharged home and was discharged on
amoxicillin/doxycycline therapy. Patient will follow-up with colorectal surgery in office.
Important imaging findings :
None
Procedure findings :
None
Discharge Plan
-
Patient Disposition: Home (Routine Discharge)
Discharge Diagnosis/Procedures: Left buttock abscess
Condition: Fair
Diet: Other diet
Additional Diets: Low potassium diet for next 2 days
Activity: As tolerated
Driving Restrictions: As prior to admission
Bathing Restrictions: OK to Shower
Wound Care: Sitz baths twice a day for one week. Warm water, at least 10 minutes. No need for salt unless you prefer.
Daily fiber supplement is recommended.
Stool softeners as needed.
You will need to follow up in one with with Dr. Gong (surgeon) to have your drain removed.
Call colorectal surgery if you have any concerns, fevers, chills, increasing pain, bleeding, etc. [phone].
Instructions: Psyllium, How to Do a Sitz Bath
Referrals:
Jaquelin Franks CRNP [Family Provider] - in one week
Bello Gong MD [Active] - in one week
Additional Discharge Medication Instructions: Tylenol or Ibuprofen as needed for pain. Maximum dose of Tylenol is 4,000mg/24 hours. Maximum dose of Ibuprofen is 3,200mg/24 hours. STOP taking bactrim.
Prescriptions:
New
doxycycline hyclate 100 mg capsule
100 mg PO BID Qty: 14 0RF
amoxicillin 875 mg tablet
875 mg PO Q12H Qty: 14 0RF
ferrous sulfate 325 mg (65 mg iron) tablet
325 mg PO Q OTHER DAY Qty: 30 0RF
Visbiome 112.5 billion cell capsule
1 cap PO DAILY Qty: 14 0RF
Continued
quetiapine 25 MG tablet
25 mg PO BID
Patient Comments:
morning and afternoon
benztropine 0.5 MG tablet
0.5 mg PO BID
haloperidol 5 MG tablet
10 mg PO DAILY
prazosin 1 MG capsule
2 mg PO HS
sertraline 100 MG tablet
100 mg PO DAILY
quetiapine 100 MG tablet
400 mg PO HS
omeprazole [Prilosec] 10 MG capsule,delayed release(DR/EC)
20 mg PO DAILY
trazodone 100 MG tablet
100 mg PO HS
buspirone 10 MG tablet
20 mg PO TID
hydroxyzine HCl 10 MG tablet
10 mg PO TID
bupropion HCl 150 MG tablet extended release 24 hr
150 mg PO DAILY
albuterol sulfate [Proventil HFA] 90 MCG/PUFF HFA aerosol inhaler
1 puff inhalation Q4HPRN PRN (Reason: shortness of breath) Qty: 1 0RF
dicyclomine 10 mg Capsule
10 mg PO QID
Discharge Orders:
Discharge Patient (As Directed); Ordered 05/28/24
Ordered By: Demetrius Eldridge
Discharge Date and Time
Discharge Date/Time: 05/28/24 10:55
Print Language: NORWEGIAN
== END 2024-05-28 10:55 | disposition home or self-care (01) | DRG 603 ==
LOC: 2 NORTH 03:40
PROVIDERS: Internal Medicine; Physician Assistant; ADMITTING PHYSICIAN Internal Medicine; ATTENDING PHYSICIAN Hospitalist; EMERGENCY PHYSICIAN Emergency Medicine; FAMILY PHYSICIAN Nurse Practitioner Adult Health; OTHER PHYSICIAN Surgery
PROC: 0J993ZX Drainage of Buttock Subcutaneous Tissue and Fascia, Percutaneous Approach, Diagnostic (ICD-10-PCS; 2024-05-27)
PROC: 0J9900Z Drainage of Buttock Subcutaneous Tissue and Fascia with Drainage Device, Open Approach (ICD-10-PCS; 2024-05-27)
PROC: 0DJD8ZZ Inspection of Lower Intestinal Tract, Via Natural or Artificial Opening Endoscopic (ICD-10-PCS; 2024-05-27)
PROC: 0JB90ZX Excision of Buttock Subcutaneous Tissue and Fascia, Open Approach, Diagnostic (ICD-10-PCS; 2024-05-27)
DX: L02.31 Cutaneous abscess of buttock (principal); F25.9 Schizoaffective disorder, unspecified; E66.9 Obesity, unspecified; Z68.33 Body mass index [BMI] 33.0-33.9, adult; F32.A Depression, unspecified; J45.909 Unspecified asthma, uncomplicated; L03.317 Cellulitis of buttock; K62.89 Other specified diseases of anus and rectum; R59.0 Localized enlarged lymph nodes; Z79.899 Other long term (current) drug therapy; Z86.14 Personal history of Methicillin resistant Staphylococcus aureus infection
CPT/HCPCS: 88304; 72193; 80048; 80053; 82607; 82728; 82746; 83036; 83540; 83735; 84443; 84703; 85025; 85027; 87070; 87075; 87147; 87186; 87205; 96374; 96375; 99285; Q9967

== ENCOUNTER 2025-09-08 18:06 | Emergency (ER) | payer MEDICARE, SELFPAY ==
[2025-09-08 18:11] VITALS: BP 123/95
[2025-09-08 19:43] VITALS: BMI 34.7
[2025-09-08] MEDS: NORCO 5/325 1 TABLET PO (19:49)
[2025-09-08] MEDS: MOTRIN 600 MG PO (19:49)
[2025-09-08] MEDS: PEN VK 500 MG PO (19:52)
[2025-09-08 20:01] VITALS: BP 127/85
--- NOTE | 2025-09-08 20:50 | ED.GENMED ---
History of Present Illness
General
Chief Complaint: Dental Problem
Time Seen by Provider: 09/08/25 19:18
Nursing documentation reviewed up to this point in time: agreed with
History of Present Illness
History of Present Illness:
30-year-old female presents to the ER for treatment of severe pain in her left upper molar. Patient admits that this tooth has been cracked for several years. The tooth has slowly disintegrated. She reports that she has not had dental insurance
and has not been able to get into see a dentist as she cannot find anyone who would accept a payment plan as an option. She denies any fevers or chills. She states that the pain has become severe over the last 24 hours. No injury or trauma. She
is on multiple psychiatric medications due to history of schizoaffective disorder, borderline personality, PTSD, impulse control disorder, anxiety, depression. She did take some Tylenol and ibuprofen earlier today with minimal change in her
symptoms. She did try also using some topical dental anesthetic cream. She has not seen a dentist in many years
Past History
Past History
ED Past Medical History: Psychiatric (depression)
Social History
Tobacco: Non-smoker
Alcohol: None
Drug: None
Personal:
Living: with family
Employment: Employed
Phy Exam
Physical Exam
Physical Exam:
Vital signs reviewed, patient is awake, alert, appears in no acute distress, no facial swelling, no facial cellulitis, no stridor, no trismus, multiple caries noted throughout her mouth, mucous membranes are moist, no tongue elevation, tooth of
concern is #12 which is broken at the gumline with decay at the central portion of the pulp, no gum erythema, no pointing, no fluctuance, no anterior cervical lymphadenopathy appreciated, heart regular rate and rhythm not murmurs or ectopy, GCS is 15
Course
Orders/Labs/Results
Orders:
Orders
09/08/25 19:26
Hydrocodone 5/APAP 325 [[place] 5/325] 1 tablet PO NOW STA
Ibuprofen [Motrin] 600 mg PO NOW STA
Penicillin V Potassium [Pen Vk] 500 mg PO NOW STA
09/08/25 19:36
Penicillin V Potassium [Pen Vk] 500 mg PO NOW STA
Vital Signs
Initial and Last Documented VS:
Initial Vital Signs
Temp Pulse Resp BP Pulse Ox
99.1 F 115 18 123/95 99
09/08/25 18:11 09/08/25 18:11 09/08/25 18:11 09/08/25 18:11 09/08/25 18:11
Last Documented Vital Signs
Temp Pulse Resp BP Pulse Ox
98.6 F 115 18 127/85 99
09/08/25 19:45 09/08/25 18:11 09/08/25 18:11 09/08/25 20:01 09/08/25 18:11
MDM/Problems Addressed
Differential Diagnosis Includes:
Differential diagnosis considered but not limited to dental caries, poor compliance, lack of insurance, early abscess along with other etiologies considered
Chronic conditions affecting care:
Mental illness
*Pulse Oximetry
SaO2: 99
Oxygen Mode of Delivery: Room air
Patient hypoxic: no
*Critical Care Note
Total Time (30-74mins, 75-104mins- exclusive of procedures): Not Applicable
Update Note
Update Note:
I spoke with patient and her peripheral vascular tech present at bedside extensively about need to see dentist for definitive treatment that she will need dental extraction in order to minimize recurrence of pain or serious infection. Patient is provided with
local dental clinic referral information. Patient is given first dose of antibiotic prior to discharge. We also discussed additional pain alleviation and treatment strategies. Patient is given a small prescription Vicodin after reviewing the
prescription drug monitoring database in addition to ibuprofen. I encouraged patient to take the ibuprofen [id number] with only as needed use of Vicodin. She expressed understanding of discharge instructions and had no questions prior to
leaving the department.
ED Attending Note
-
Portions of this chart may have been created with voice recognition software.� Occasional wrong word or��sound alike� substitutions may have occurred due to the inherent limitations of voice recognition software.
Discharge Plan
Departure
Patient Disposition: Home (Routine Discharge)
Date of Disposition: 09/08/25
Time of Disposition: 19:27
Patient with high blood pressure during this ER visit?: No
Discharge Problem:
Pain, dental
Instructions: Fractured Tooth (DC), Dental Pain (DC)
Prescriptions:
New
penicillin V potassium 500 mg tablet
500 mg PO TID Qty: 20 0RF
ibuprofen 600 mg tablet
600 mg PO TID PRN (Reason: Pain) Qty: 20 0RF
hydrocodone-acetaminophen 5-300 mg tablet
1 tab PO Q6H Qty: 8 0RF
No Action
quetiapine 25 MG tablet
25 mg PO BID
Patient Comments:
morning and afternoon
benztropine 0.5 MG tablet
0.5 mg PO BID
haloperidol 5 MG tablet
10 mg PO DAILY
prazosin 1 MG capsule
2 mg PO HS
sertraline 100 MG tablet
100 mg PO DAILY
quetiapine 100 MG tablet
400 mg PO HS
omeprazole [Prilosec] 10 MG capsule,delayed release(DR/EC)
20 mg PO DAILY
trazodone 100 MG tablet
100 mg PO HS
buspirone 10 MG tablet
20 mg PO TID
hydroxyzine HCl 10 MG tablet
10 mg PO TID
bupropion HCl 150 MG tablet extended release 24 hr
150 mg PO DAILY
albuterol sulfate [Proventil HFA] 90 MCG/PUFF HFA aerosol inhaler
1 puff inhalation Q4HPRN PRN (Reason: shortness of breath) Qty: 1 0RF
dicyclomine 10 mg Capsule
10 mg PO QID
doxycycline hyclate 100 mg capsule
100 mg PO BID Qty: 14 0RF
amoxicillin 875 mg tablet
875 mg PO Q12H Qty: 14 0RF
ferrous sulfate 325 mg (65 mg iron) tablet
325 mg PO Q OTHER DAY Qty: 30 0RF
Visbiome 112.5 billion cell capsule
1 cap PO DAILY Qty: 14 0RF
Referrals:
[facility] [Other]
Discharge Problem: Pain, dental
[facility] [Other]
Activity Restrictions/Additional Instructions:
Complete course of antibiotics as prescribed. Use ibuprofen as prescribed 3 times daily for the next 3 days then as needed for pain. Add Vicodin as prescribed for any pain uncontrolled with ibuprofen. You may also try [id number] remedies
such as Anbesol or Orajel for additional pain relief. Please contact dental clinic tomorrow morning to schedule appointment for definitive treatment of your tooth pain related to fractured tooth
Interventions
Interventions:
*Risk Screen - Suicide Last Done: 09/08/25 18:11
*General Assessment Last Done: 09/08/25 18:11
*Neglect/Abuse Screening Last Done: 09/08/25 18:11
*ED COVID-19 Vaccine History Last Done: 09/08/25 19:44
*ED Influenza Vaccine History Last Done: 09/08/25 19:44
[facility] Fall Risk Assessment Tool Last Done: 09/08/25 19:44
*Nursing Disposition Last Done: 09/08/25 20:02
Discharge Date and Time
Discharge Date/Time: 09/08/25 20:03
Print Language: CHINESE
== END 2025-09-08 20:03 | disposition home or self-care (01) ==
LOC: EMR 18:06
PROVIDERS: EMERGENCY PHYSICIAN Emergency Medicine; FAMILY PHYSICIAN Nurse Practitioner Adult Health
DX: K08.89 Other specified disorders of teeth and supporting structures (principal); F25.9 Schizoaffective disorder, unspecified; F60.3 Borderline personality disorder; F43.10 Post-traumatic stress disorder, unspecified; F63.9 Impulse disorder, unspecified; F41.9 Anxiety disorder, unspecified; F32.A Depression, unspecified; Z59.71 Insufficient health insurance coverage
CPT/HCPCS: 99283